=== PATIENT | male | born 1950 | race Caucasian/White ===

== ENCOUNTER 2016-10-19 13:54 | Emergency (ER) | payer OTHER ==
[~2016-10-19] VITALS: Ht 175.3 cm; Wt 90.9 kg
[~2016-10-19 13:54] MED LIST: ALBUTEROL17 GM IH; ALBUTEROL2.5 MG/0.5 IH; CARDIZEM60 MG PO; CEFTIN500 MG PO; CELEXA20 MG PO; CITALOPRAM HBR20 MG PO; CLONAZEPAM0.5 MG PO; CRESTOR20 MG PO; Cardizem PO; DEPAKOTE ER (E500 MG PO; DEPAKOTE ER500 MG PO; DEPAKOTE500 MG PO; DIVALPROEX SOD500 MG PO; DUONEB3 ML IH; Depakote ER (Extende PO; ESCITALOPRAM OX20 MG PO; Ecotrin PO; FLEXERIL10 MG PO; FLOMAX0.4 M1 PO; FUROSEMIDE20 MG PO; LANSOPRAZOLE30 MG PO; LEVAQUIN500 MG PO; Medrol Dosepak PO; NORCO 5/3251 TABLET PO; Nitrostat,NitroQuick SL; PERCOCET 5/31 TABLET PO; PHENERGAN DM SYR1 ML PO; PREDNISONE PO; PREDNISONE10 MG PO; PREDNISONE50 MG PO; Robitussin, Organidi PO; SYMBICORT60 INHALAT IH; TAMSULOSIN HCL0.4 MG PO; TESSALON PERLE100 MG PO; VENTOLIN HFA18 GM IH; VIAGRA100 MG PO; celeXA PO
[2016-10-19 14:42] LABS: HEMATOCRIT 43.8 % (38.0-50.0); MCH 31.9 PG (29.0-34.0); MCHC 35.6 G/DL (30.0-36.0); MCV 89.6 FL (86-99); MEAN PLAT.VOLUME 8.6 uM^3 (9.0-12.4); PLATELET COUNT 116 K/uL (156-360); RBC DIS.WIDTH-SD 42.3 % (39-53); RED BLOOD COUNT 4.89 M/uL (4.00-5.50); WHITE BLOOD COUNT 6.3 K/uL (4.1-10.2)
[2016-10-19 14:50] LABS: CHLORIDE 106 mEq/L (99-109); SODIUM 141 mEq/L (136-147)
[2016-10-19 14:51] LABS: INTER. NORMALIZED RATIO 1.1; PROTHROMBIN TIME 10.7 (9.2-11.2); PTT 23.8 (25-32)
[2016-10-19 14:52] LABS: GLUCOSE 151 mg/dL (70-99)
[2016-10-19 14:53] LABS: ANION GAP 14 MEQ/L (2-14)
[2016-10-19 14:54] LABS: TOTAL BILIRUBIN 0.5 mg/dL (0.0-1.0)
[2016-10-19 14:55] LABS: SERUM ETHYL ALCOHOL < 10 mg/dL
[2016-10-19 14:56] LABS: ALKALINE PHOSPHATASE 37 IU/L (3-129); GFR ESTIMATE (CALCULATED) > 59 mL/min/
[2016-10-19 14:57] LABS: UREA NITROGEN (BUN) 21 mg/dL (9-23)
[2016-10-19] MEDS ORDERED: FLEXERIL10 MG PO (16:55)
[2016-10-19] MEDS ORDERED: ULTRAM50 MG PO (16:55)
[2016-10-19 17:36] VITALS: BP 131/83
== END 2016-10-19 18:35 | disposition home or self-care (01) ==
LOC: EME 13:54
PROVIDERS: Emergency Medicine
DX: S16.1XXA Strain of muscle, fascia and tendon at neck level, initial encounter (principal); S00.93XA Contusion of unspecified part of head, initial encounter; S50.12XA Contusion of left forearm, initial encounter; V49.40XA Driver injured in collision with unspecified motor vehicles in traffic accident, initial encounter; E78.5 Hyperlipidemia, unspecified; K21.9 Gastro-esophageal reflux disease without esophagitis; Z87.891 Personal history of nicotine dependence
CPT/HCPCS: 70450; 72125; 80053; 85027; 85610; 85730; 99281; 99285; G0480

== ENCOUNTER 2017-08-05 16:29 | Emergency (ER) | payer OTHER ==
[~2017-08-05] VITALS: Ht 175.3 cm; Wt 92.5 kg
[~2017-08-05 16:29] MED LIST changes: +ULTRAM50 MG PO
[2017-08-05] MEDS ORDERED: MOTRIN600 MG PO (18:48)
[2017-08-05 19:02] VITALS: BP 131/96
== END 2017-08-05 18:48 | disposition home or self-care (01) ==
LOC: EME 16:29
DX: S40.011A Contusion of right shoulder, initial encounter (principal); S40.021A Contusion of right upper arm, initial encounter; S60.211A Contusion of right wrist, initial encounter; W22.09XA Striking against other stationary object, initial encounter; Y92.512 Supermarket, store or market as the place of occurrence of the external cause; Z88.5 Allergy status to narcotic agent
CPT/HCPCS: 73030; 73130